=== PATIENT | female | born 1985 | race Two or more races ===

== ENCOUNTER 2018-06-06 12:59 | Outpatient (CLI) | payer OTHER ==
[~2018-06-06 12:59] MED LIST: AMOX1TAB12 PO; MACROBID 100 M100 MG PO; NAPR500T14 PO; NEURONTIN600 MG; ORALSEP BC; SYNTHROID50 MCG; URETRON DS1 TAB PO
== END 2018-06-06 13:01 | disposition home or self-care (01) ==
LOC: SONOGRAMA 12:59 → MAMO-SONO 13:15
DX: E04.2 Nontoxic multinodular goiter (principal)

== ENCOUNTER 2018-09-20 08:32 | Outpatient (CLI) | payer OTHER | END 2018-09-20 08:34 | disposition home or self-care (01) | LOC: SONOGRAMA 08:32 → MAMO-SONO 08:45 | DX: R10.84 Generalized abdominal pain (principal) ==

== ENCOUNTER 2019-01-18 21:10 | Inpatient (IN) | payer OTHER ==
[~2019-01-18] VITALS: Ht 172.7 cm; Wt 94.3 kg
--- NOTE | 2019-01-18 21:20 | NUR ---
PTE AL MOMENTO ESTABLE, SIGNOS VITALES ESTABLES, ALERTA Y ORIENTADA X3 REFIERE DIARREAS X5 Y DOLOR ABDOMINAL DESDE SASHA. SE PASA A AREA DE PASILLO, SE CONTINUA MONITOREANDO POR CAMBIOS.
--- NOTE | 2019-01-19 00:11 | NUR ---
PT ALERTA Y ORIENTADA X3 ESFERAS SE LE ORIENTA SOBRE TX Y REFIERE ENTEDER. SE JANAE MUESTRAS DE SIM Y VENOPUNCION CON TECNICAS ASEPTICAS. SE ADMINISTRAN MEDICAMENTOS E IVFLUIDS ORDENADOS. PT TOLERA TX.
--- NOTE | 2019-01-19 08:12 | NUR ---
SE RECIBE PACIENTE ALERTA Y ORIENTADA X3 EN JUANIS CON BARANDAS ELEVADAS. PACIENTE MUESTRA 0.9% NACL BAJANDO A 150 ML/HR CON LINEAS IV PATENTES Y AREA DE VENOPUNCION ANNA DE EDEMA Y DOLOR. PACIENTE SE MANTIENE BAJO OBSERVACION PARA CAMBIOS SIGNIFICATIVOS. PACIENTE TIENE REEVALUACION MEDICA PENDIENTE.
[2019-01-22] MEDS ORDERED: ZITHROMAX500 MG PO ×2 (14:54→15:55)
[2019-01-22] MEDS ORDERED: INTESTINEX680 M1 PO (14:54)
[2019-01-22] MEDS ORDERED: ZANTAC150 MG PO (14:54)
[2019-01-22] MEDS ORDERED: OSEL75CA PO (14:57)
== END 2019-01-22 16:02 | disposition home or self-care (01) | DRG 392 ==
LOC: ER 21:10 → MEDJ 01-19 09:29 → SEC-K 01-19 09:29 → MEDJ 01-19 21:09
PROVIDERS: ADMIT Internal Medicine
PROC: 8E0ZXY6 Isolation (ICD-10-PCS; principal; 2019-01-19)
PROC: BW21ZZZ Computerized Tomography (CT Scan) of Abdomen and Pelvis (ICD-10-PCS; 2019-01-19)
DX: A08.8 Other specified intestinal infections (principal)

== ENCOUNTER 2019-10-01 11:17 | Emergency (ER) | payer OTHER ==
[~2019-10-01] VITALS: Ht 175.3 cm; Wt 89.8 kg
[~2019-10-01 11:17] MED LIST changes: +INTESTINEX680 M1 PO; +OSEL75CA PO; +ZANTAC150 MG PO; +ZITHROMAX500 MG PO
[2019-10-01] MEDS ORDERED: SYNTHROID150 MCG PO (11:36)
== END 2019-10-01 15:19 | disposition home or self-care (01) ==
LOC: ER 11:17
DX: K52.9 Noninfective gastroenteritis and colitis, unspecified (principal)

== ENCOUNTER 2019-10-07 18:42 | Emergency (ER) | payer OTHER ==
[~2019-10-07] VITALS: Ht 175.3 cm; Wt 88.5 kg
[~2019-10-07 18:42] MED LIST changes: +SYNTHROID150 MCG PO
[2019-10-07] MEDS ORDERED: NAPROXEN500 MG PO (21:30)
== END 2019-10-07 21:35 | disposition home or self-care (01) ==
LOC: ER 18:42
DX: S30.0XXA Contusion of lower back and pelvis, initial encounter (principal); W18.39XA Other fall on same level, initial encounter; Y93.89 Activity, other specified; Y92.091 Bathroom in other non-institutional residence as the place of occurrence of the external cause; Y99.8 Other external cause status

== ENCOUNTER 2020-05-28 07:59 | Outpatient (CLI) | payer OTHER ==
[~2020-05-28 07:59] MED LIST changes: +NAPROXEN500 MG PO
== END 2020-05-28 08:06 | disposition home or self-care (01) ==
LOC: MAMO-SONO 07:59
DX: Z12.31 Encounter for screening mammogram for malignant neoplasm of breast (principal); N60.11 Diffuse cystic mastopathy of right breast; N60.12 Diffuse cystic mastopathy of left breast

== ENCOUNTER 2020-06-28 06:32 | Emergency (ER) | payer OTHER ==
[~2020-06-28] VITALS: Ht 175.3 cm; Wt 95.3 kg
[2020-06-28] MEDS ORDERED: MONISTAT 31 EACH VAG (08:51)
[2020-06-28] MEDS ORDERED: FLUCONAZOLE200 MG PO (08:51)
== END 2020-06-28 08:56 | disposition home or self-care (01) ==
LOC: ER 06:32
DX: B37.3 Candidiasis of vulva and vagina (principal)

== ENCOUNTER 2021-09-16 08:38 | Outpatient (CLI) | payer OTHER ==
[~2021-09-16 08:38] MED LIST changes: +FLUCONAZOLE200 MG PO; +MONISTAT 31 EACH VAG
== END 2021-09-16 08:51 | disposition home or self-care (01) ==
LOC: MAMO-SONO 08:38
PROVIDERS: ATTEND General Practice
DX: N60.02 Solitary cyst of left breast (principal); N60.01 Solitary cyst of right breast; Z12.31 Encounter for screening mammogram for malignant neoplasm of breast

== ENCOUNTER 2025-05-20 02:11 | Emergency (ER) | payer OTHER ==
[~2025-05-20] VITALS: Ht 175.3 cm; Wt 84.4 kg
[~2025-05-20 02:11] MED LIST changes: +ALBUTEROL2.5 MG/3 M IH; +BUDESONIDE0.5 MG/2 M IH
== END 2025-05-20 04:24 | disposition home or self-care (01) ==
LOC: ER 02:11
DX: R10.9 Unspecified abdominal pain (principal); Z91.013 Allergy to seafood; Z91.041 Radiographic dye allergy status